=== PATIENT | male | born 1975 | race Caucasian/White ===

== ENCOUNTER 2019-01-15 11:53 | Inpatient (IN) ==
[2019-01-15] MEDS ORDERED: Albuterol 2.5 MG/3 ML NEBULIZER IH ONE (11:58)
[2019-01-15] MEDS ORDERED: methylPREDNISolone 125 MG/2 ML VIAL IVP ONE (11:58)
[2019-01-15] MEDS ORDERED: Ipratropium/Albuterol Neb 3 ML IH ONE (11:58)
[2019-01-15] MEDS ORDERED: Isovue-370 500 ML BOTTLE IVP ONE ×2 (11:58→14:15)
[2019-01-15] MEDS ORDERED: cefTRIAXone 1,000 MG in Water for inj. (sterile) 20 ML 10 ML IVP ONE (11:58)
[2019-01-15] MEDS ORDERED: Azithromycin 250 MG TABLET PO ONE (11:58)
--- NOTE | 2019-01-15 12:07 | Emergency Department Note ---
Disposition Clinical Impression: CAP (community acquired pneumonia) Disposition: Admitted As Inpatient Condition: Fair Instructions: Community-acquired Pneumonia (ED) Referrals: Eamon George MD [Primary Care Provider] - Forms: ED Satisfaction Letter, Work/School Release Time of Disposition: 12:28 ( will admit) SOB HPI - General Chief Complaint: ED General Medical Stated Complaint: Shortness of Breath Time Seen by Provider: 01/15/19 11:55 Source: patient Mode of arrival: ambulatory Limitations: no limitations Nursing Notes Reviewed: Yes Vital Signs Reviewed: Yes - History of Present Illness This 43-year-old male who presents to the emergency department today with complaints of shortness of breath. Patient was initially evaluated at primary care physician's office, and sent here directly to the ER. Patient does appear to be in mild respiratory distress, his O2 saturation on arrival was 83% on room air. Patient does have mottled extremities, he states that he has history of COPD and asthma. Pt Subjective Complaint: shortness of breath Onset (ago): Just [employer] Context: recent illness Severity: moderate Consistency/Duration: intermittent Improves with: oxygen, rest Worsens with: exertion Known history of: COPD, asthma - Related Data Home Medications Medication Instructions Recorded Confirmed Albuterol Sulfate [Proair Hfa] 90 mcg IH Q4-6H PRN 03/06/16 01/15/19 Amantadine [Symmetrel] 100 mg PO BID 03/06/16 Bupropion HCl [Wellbutrin Xl] 300 mg PO DAILY 03/06/16 Cyclobenzaprine [Flexeril] 10 mg PO TID 03/06/16 Duloxetine HCl [Cymbalta] 60 mg PO BID 03/06/16 01/15/19 Gabapentin [Neurontin] 800 mg PO TID 03/06/16 01/15/19 HYDROcodone/Acet 5/325 mg [[place] 1 tab PO Q8HR 03/06/16 01/15/19 5-325 mg] Methadone 5 mg PO TID 03/06/16 01/15/19 Modafinil [Provigil] 200 mg PO DAILY 03/06/16 01/15/19 Alexander-3/Dha/Epa/Fish Oil [Alexander-3 1,200 mg PO DAILY 03/06/16 01/15/19 Fish Oil 1,200 mg Sfgl] RisperiDONE [Risperdal] 1 mg PO TID 03/06/16 01/15/19 SUMAtriptan succinate [Imitrex] 100 mg PO DAILY 03/06/16 01/15/19 Atorvastatin 40 mg PO DAILY 01/15/19 01/15/19 Tadalafil [Cialis] 20 mg PO DAILY 01/15/19 01/15/19 Previous Rx's Medication Instructions Recorded Albuterol Sulfate [Albuterol 1 puff IH QID PRN #1 puff 03/06/16 Inhaler] Allergies Allergy/AdvReac Type Severity Reaction Status Date / Time No Known Allergies Allergy Verified 03/06/16 15:19 Constitutional: Denies: fever, chills, weakness, weight change Eyes: Denies: eye pain, eye discharge, vision change ENT ED: Denies: ear pain, throat pain, dental pain, hearing loss, epistaxis, congestion, dysphagia Cardiovascular: Denies: chest pain, palpitations, dyspnea on exertion, edema, syncope Respiratory: Reports: cough, dyspnea, wheezes. Denies: hemoptysis, stridor Gastrointestinal: Denies: abdominal pain, nausea, vomiting, diarrhea, co nstipation, hematemesis, melena, hematochezia Genitourinary: Denies: urgency, dysuria, frequency, hematuria Musculoskeletal: Denies: back pain, neck pain, arthralgia, myalgia Integumentary: Denies: rash, abrasion, lesions Neurological: Denies: headache, weakness, numbness, paresthesias, confusion, a bnormal gait, vertigo Psychiatric: Denies: anxiety, depression, suicidal thoughts, homicidal thoughts, auditory hallucinations, visual hallucinations Endocrine: Denies: fatigue Hematological/Lymphatic: Denies: easy bleeding, easy bruising Allergic/Immunologic: Denies: facial swelling, urticaria Past Medical History - Past Medical History Medical history: Reports: asthma, COPD Psychiatric history: Reports: no psych history - Social History Smoking Status: Former smoker Smokeless Tobacco Status: No Alcohol use: Reports: none Drug use: Reports: none Physical Exam - General Limitations: no limitations General appearance: alert - Head Head exam: atraumatic, normocephalic, normal inspection - Eye Eye exam: Present: normal appearance, PERRL, EOMI - Expanded Eye Exam Pupils: Left: reactive - ENT ENT exam: normal exam, normal oropharynx, mucous membranes moist - Expanded ENT Exam External ear exam: Present: normal external inspection Mouth exam: Present: normal external inspection Teeth exam: Present: normal inspection Throat exam: Present: normal inspection - Neck Neck exam: Present: normal inspection, full ROM, trachea midline - Chest Chest inspection: Present: normal inspection, symmetric chest wall rise - Respiratory Respiratory exam: Present: wheezes, accessory muscle use, prolonged expiratory phase - Cardiovascular Cardiovascular exam: Present: tachycardia, normal heart sounds - Abdominal Exam Abdominal exam: Present: soft, Non-Tender. Absent: tenderness, distention, guarding, rebound, rigidity - Extremities Exam Extremities exam: Present: normal inspection, full ROM. Absent: tenderness, pedal edema - Expanded Upper Extremity Exam Shoulder exam: Present: normal inspection, full ROM Arm exam: Present: normal inspection, full ROM Elbow exam: Present: normal inspection, full ROM Forearm/Wrist exam: Present: normal inspection, full ROM Hand exam: Present: normal inspection, full ROM Vascular exam: Normal: capillary refill, radial pulse - Expanded Lower Extremity Exam Hip/Pelvis exam: Present: normal inspection, full ROM Upper leg exam: Present: normal inspection, full ROM Knee exam: Present: normal inspection, full ROM Lower leg exam: Present: normal inspection, full ROM Ankle exam: Present: normal inspection, full ROM Foot/toe exam: Present: normal inspection, full ROM Neurovascular/Tendon exam: Absent: motor deficit, sensory deficit, tendon deficit - Back Exam Back exam: Present: normal inspection, full ROM. Absent: tenderness - Neurological Exam Neurological exam: Present: alert, oriented X3 - Expanded Neurological Exam Patient oriented to: Present: person, place, time Coma Scale Eye Opening: Spontaneous Coma Scale Motor Response: Obeys Commands Coma Scale Verbal Response: Oriented Coma Scale Total: 15 - Psychiatric Psychiatric exam: Present: normal affect, normal mood - Skin Skin exam: Present: warm, dry, intact, normal color Course Vital Signs Temperature 97.8 F 01/15/19 11:55 Pulse Rate 83 01/15/19 11:55 Respiratory Rate 18 01/15/19 11:55 Blood Pressure 130/78 01/15/19 11:55 O2 Sat by Pulse Oximetry 91 01/15/19 11:55 Temperature 97.8 F 01/15/19 11:55 Pulse Rate 89 01/15/19 12:30 Respiratory Rate 18 01/15/19 12:30 Blood Pressure 141/93 01/15/19 12:30 O2 Sat by Pulse Oximetry 98 01/15/19 12:30 Oxygen Delivery Oxygen Delivery Room Air Shortness of Breath/Dyspnea - Differential Diagnosis Likely: acute exacerbation of chronic obstructive airways disease, congestive heart failure, pneumonia, asthma with exacerbation - Medical Records Medical records reviewed: Yes I reviewed the patient's medical records. - Lab Data Lab results reviewed: Yes I reviewed the patient's lab results. Result diagrams: 01/15/19 12:06 01/15/19 12:06 Lab Results 01/15/19 01/15/19 01/15/19 Range/Units 12:06 12:06 12:06 WBC 6.4 (4.3-11.1) K/mcL RBC 4.32 (4.19-5.50) M/mcL Hgb 14.0 (12.9-16.9) g/dL Hct 39.2 (37.5-50.1) % MCV 90.7 (83.0-100.0) fL MCH 32.4 (28.0-33.3) pg MCHC 35.7 H (31.6-35.5) g/dL RDW 12.5 (11.5-14.5) % Plt Count 86 L (140-400) K/mcL MPV 9.0 L (9.4-12.4) fL Immature Gran % 3.4 (0-4) % Seg Neutrophils % 88.5 % Lymphocytes % 4.5 % Monocytes % 3.0 % Eosinophils % 0.0 % Basophils % 0.6 % Neutrophils # 5.7 (1.6-8.9) K/mcL Lymphocytes # 0.3 L (0.6-4.6) K/mcL Monocytes # 0.2 (0.0-1.3) K/mcL Eosinophils # 0.0 (0.0-0.6) K/mcL Basophils # 0.0 (0.0-0.2) K/mcL PT 12.5 H (9.4-12.1) Seconds INR 1.1 APTT 39.3 H (26.0-36.0) Seconds D-Dimer 1069 H (0-500) ng/mLFEU Sample Site ABG pH (7.32-7.45) pH Units ABG pCO2 (35-45) mmHg ABG pO2 (85-104) mmHg ABG HCO3 (21-27) mEq/L ABG Total CO2 (20-26) mEq/L ABG O2 Saturation (95-98) % ABG Base Excess (-2 to 3) mEq/L Maged Test O2 Delivery Device Inspired O2 (1-15=lpm [id number]=%) Sodium 132 L (136-145) mEq/L Potassium 4.3 (3.5-5.1) mEq/L Chloride 96 L (98-107) mEq/L Carbon Dioxide 24 (23-29) mEq/L BUN 27 H (6-20) mg/dL Creatinine 1.73 H (0.70-1.30) mg/dL Est GFR ( Amer) 52 L (> 60) Est GFR (Non-Af Amer) 43 L (> 60) BUN/Creatinine Ratio 16 (6-26) Glucose 92 (70-105) mg/dL Calculated Osmolality 279 L (280-300) Lactic Acid (0.5-2.2) mmol/L Calcium 9.1 (8.6-10.3) mg/dL Troponin I < 0.03 (< 0.04) ng/mL B-Natriuretic Peptide (Less than 100) pg/mL 01/15/19 01/15/19 01/15/19 Range/Units 12:06 12:06 12:29 WBC (4.3-11.1) K/mcL RBC (4.19-5.50) M/mcL Hgb (12.9-16.9) g/dL Hct (37.5-50.1) % MCV (83.0-100.0) fL MCH (28.0-33.3) pg MCHC (31.6-35.5) g/dL RDW (11.5-14.5) % Plt Count (140-400) K/mcL MPV (9.4-12.4) fL Immature Gran % (0-4) % Seg Neutrophils % % Lymphocytes % % Monocytes % % Eosinophils % % Basophils % % Neutrophils # (1.6-8.9) K/mcL Lymphocytes # (0.6-4.6) K/mcL Monocytes # (0.0-1.3) K/mcL Eosinophils # (0.0-0.6) K/mcL Basophils # (0.0-0.2) K/mcL PT (9.4-12.1) Seconds INR APTT (26.0-36.0) Seconds D-Dimer (0-500) ng/mLFEU Sample Site R Radial ABG pH 7.43 (7.32-7.45) pH Units ABG pCO2 34 L (35-45) mmHg ABG pO2 56 L (85-104) mmHg ABG HCO3 23 (21-27) mEq/L ABG Total CO2 24 (20-26) mEq/L ABG O2 Saturation 90 L (95-98) % ABG Base Excess -1 (-2 to 3) mEq/L Maged Test Positive O2 Delivery Device Cannula Inspired O2 2.0 (1-15=lpm [id number]=%) Sodium (136-145) mEq/L Potassium (3.5-5.1) mEq/L Chloride (98-107) mEq/L Carbon Dioxide (23-29) mEq/L BUN (6-20) mg/dL Creatinine (0.70-1.30) mg/dL Est GFR ( Amer) (> 60) Est GFR (Non-Af Amer) (> 60) BUN/Creatinine Ratio (6-26) Glucose (70-105) mg/dL Calculated Osmolality (280-300) Lactic Acid 1.3 (0.5-2.2) mmol/L Calcium (8.6-10.3) mg/dL Troponin I (< 0.04) ng/mL B-Natriuretic Peptide 6 (Less than 100) pg/mL - Radiology Data Radiology results reviewed: Yes I reviewed the patient's radiology results. Chest x-ray per radiology reading shows infiltrate in the right middle and bilateral lobes of the lung consistent with pneumonia - EKG Data EKG attestation: Yes I reviewed and interpreted this EKG. EKG results narrative: nsr , rate of 85 EKG shows normal: Reports: sinus rhythm Rate: Reports: normal Rhythm: Reports: NSR [place]/QRS: Reports: normal
[2019-01-15 12:18] LABS: Basophils % 0.6 %; Hematocrit 39.2 % (37.5-50.1); Immature Granulocytes % 3.4 % (0-4); Lymphocytes # 0.3 K/mcL (0.6-4.6); Lymphocytes % 4.5 %; Mean Corpuscular HGB Conc 35.7 g/dL (31.6-35.5); Mean Corpuscular Hemoglobin 32.4 pg (28.0-33.3); Mean Corpuscular Volume 90.7 fL (83.0-100.0); Monocytes # 0.2 K/mcL (0.0-1.3); Neutrophils # 5.7 K/mcL (1.6-8.9); Red Blood Count 4.32 M/mcL (4.19-5.50); Red Cell Distribution Width 12.5 % (11.5-14.5); Segmented Neutrophils % 88.5 %
[2019-01-15 12:20] LABS: Platelet Count 86 K/mcL (140-400)
[2019-01-15 12:31] LABS: INR 1.1; Prothrombin Time 12.5 Seconds (9.4-12.1)
[2019-01-15 12:32] LABS: ABG Base Excess -1 mEq/L (-2 to 3); ABG HCO3 23 mEq/L (21-27); ABG Oxygen Saturation 90 % (95-98); ABG PCO2 34 mmHg (35-45); ABG PH 7.43 pH Units (7.32-7.45); ABG PO2 56 mmHg (85-104); ABG TCO2 24 mEq/L (20-26)
[2019-01-15 12:33] LABS: Activated Partial Thrombo Time 39.3 Seconds (26.0-36.0)
[2019-01-15 12:34] LABS: BUN/Creatinine Ratio 16 (6-26); Blood Urea Nitrogen 27 mg/dL (6-20); Calcium 9.1 mg/dL (8.6-10.3); Carbon Dioxide 24 mEq/L (23-29); Chloride 96 mEq/L (98-107); Glucose 92 mg/dL (70-105); Osmolality,Calculated 279 (280-300); Potassium 4.3 mEq/L (3.5-5.1); Sodium 132 mEq/L (136-145); eGFR For Non-African Americans 43 (> 60)
[2019-01-15 12:38] LABS: Troponin I < 0.03 ng/mL (< 0.04)
[2019-01-15] MEDS ORDERED: 0.9 % Sodium Chloride 1,000 ML IVC ONE (12:39)
[2019-01-15] MEDS ORDERED: Albuterol 2.5 MG/3 ML NEBULIZER IH PRN (13:04)
--- NOTE | 2019-01-15 14:40 | Internal Med History&Physical ---
Date of Encounter: 01/15/19 Time of Encounter: 14:10 Assessment and Plan (1) CAP (community acquired pneumonia) Current visit: Yes Status: Acute He was started on Rocephin and Zithromax with Solu-Medrol in emergency room. Lactobacillus will be added. Qualifiers: Laterality: unspecified laterality Qualified Code(s): J18.9 - Pneumonia, unspecified organism (2) COPD (chronic obstructive pulmonary disease) Current visit: Yes Status: Chronic Albuterol nebulizers have been ordered. Qualifiers: COPD type: unspecified COPD Qualified Code(s): J44.9 - Chronic obstructive pulmonary disease, unspecified (3) Acute renal failure Current visit: Yes Status: Acute IV fluids will be given and labs rechecked in a.m. Qualifiers: Acute renal failure type: unspecified Qualified Code(s): N17.9 - Acute kidney failure, unspecified Internal Medicine - H&P: HPI Chief complaint: Cough and dyspnea Admitted From: Emergency Dept Plans for Post Hospital Care: Home History of present illness: Mr. Alvarado is a 43 year old male who came to emergency room complaining of dyspnea, cough with little productivity, and fevers and chills onset January 11. He denies vomiting or diarrhea. He reports diffuse myalgias and arthralgias. He was evaluated emergency room and was found to have bilateral pneumonia. He was admitted to [facility] floor for ongoing care needs. Respiratory history significant for having smoked from age [age] up to 2 packs per day. Pulmonary function testing 07/18/2017 showed FVC 71% predicted, FEV1 62% predicted, FEV1/FVC 69%, and MVV 35% predicted. There was insignificant improvement in FEV1 postbronchodilator. He was diagnosed with moderate obstructive airway disease. He has a diagnosis of ANAYELI and uses CPAP at bedtime. Past Med Surg Social Fam HX - Past Medical History Medical history: asthma, COPD Additional medical history: TBI Psychiatric history: no psych history - Past Surgical History Additional surgical history: knee x7 - Social History Smoking Status: Former smoker Smokeless Tobacco Status: No Alcohol use: none Drug use: none Internal Medicine - H&P: Meds Albuterol Sulfate [Albuterol Inhaler] 1 puff IH QID PRN #1 puff 03/06/16 [Rx] Albuterol Sulfate [Proair Hfa] 90 mcg IH Q4-6H PRN 03/06/16 [History] Amantadine [Symmetrel] 100 mg PO BID 03/06/16 [History] Bupropion HCl [Wellbutrin Xl] 300 mg PO DAILY 03/06/16 [History] Cyclobenzaprine [Flexeril] 10 mg PO TID 03/06/16 [History] Duloxetine HCl [Cymbalta] 60 mg PO BID 03/06/16 [History] Gabapentin [Neurontin] 800 mg PO TID 03/06/16 [History] HYDROcodone/Acet 5/325 mg [[place] 5-325 mg] 1 tab PO Q8HR 03/06/16 [History] Methadone 5 mg PO TID 03/06/16 [History] Modafinil [Provigil] 200 mg PO DAILY 03/06/16 [History] [place]-3/Dha/Epa/Fish Oil [[place]-3 Fish Oil 1,200 mg Sfgl] 1,200 mg PO DAILY 03/06/16 [History] RisperiDONE [Risperdal] 1 mg PO TID 03/06/16 [History] SUMAtriptan succinate [Imitrex] 100 mg PO DAILY 03/06/16 [History] Atorvastatin 40 mg PO DAILY 01/15/19 [History] Tadalafil [Cialis] 20 mg PO DAILY 01/15/19 [History] Allergy/AdvReac Type Severity Reaction Status Date / Time No Known Allergies Allergy Verified 03/06/16 15:19 All Systems PM: A 10-system review of systems was performed and is negative for pertinent findings except as documented above in the HPI. 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 He has not had seizures in the past year. He denies large distribution strokes. Endocrine: He has hyperlipidemia but denies diabetes or thyroid disease Hematology/oncology: He denies blood disorders cancers or anemia Psychiatric: He has anxiety and depression. He denies other mental health diagnoses. [place] skeletal: He has had left knee surgery and right shoulder surgery. He has occasional headaches and back pain. He denies gout or other bone joint or muscle disorders. - Constitutional Vitals: Temp Pulse Resp BP Pulse Ox 97.9 F 85 18 114/67 93 01/15/19 14:24 01/15/19 14:24 01/15/19 14:24 01/15/19 14:24 01/15/19 14:24 Exam: Gen.: He is a well-developed well-nourished male lying quietly in bed who appears in no acute distress HEENT: Head is atraumatic and normocephalic. Eyes: EOMI. There is no scleral icterus. Mouth: Mucosa is moist. Neck: Supple and nontender. There is no thyromegaly or adenopathy noted. Heart: Regular without murmurs gallops or ectopics. Rate is approximately 80/m. Lungs: No wheezes crackles or egophony are heard Abdomen: Soft and nontender. Abdomen is slightly distended. No masses or guarding are noted. Extremities: There is no cyanosis edema or clubbing noted. Dorsalis pedis and posterior tibial pulses are trace palpable bilaterally. Neurologic: Mental status: He is talkative and a good historian. Cranial nerves: Smile is symmetric. Forehead wrinkles bilaterally. Tongue protrudes midline. EOMI. Motor: There is no pronator drift. Cerebellar: Finger to nose is intact bilaterally. Skin: Warm and dry. He has numerous tattoos. Internal Med - H&P Results - Labs CBC & Chem 7: 01/15/19 12:06 01/15/19 12:06 Labs: Short CBC 01/15/19 Range/Units 12:06 WBC 6.4 (4.3-11.1) K/mcL Hgb 14.0 (12.9-16.9) g/dL Hct 39.2 (37.5-50.1) % Plt Count 86 L (140-400) K/mcL Neutrophils # 5.7 (1.6-8.9) K/mcL BMP 01/15/19 12:06 Sodium 132 L Potassium 4.3 Chloride 96 L Carbon Dioxide 24 BUN 27 H Creatinine 1.73 H Glucose 92 Calcium 9.1 Cardiac Enzymes 01/15/19 Range/Units 12:06 Troponin I < 0.03 (< 0.04) ng/mL - ABG Interpretation ABG results: 01/15/19 12:29 ABG pH 7.43 ABG pCO2 34 L ABG pO2 56 L ABG HCO3 23 ABG Total CO2 24 ABG O2 Saturation 90 L ABG Base Excess -1 - Impressions ITS Impressions Chest X-Ray 01/15/19 11:58 IMPRESSION: Airspace opacities in the bilateral mid to lower lungs are more severe on the right and likely represent pneumonia. D/ / Gasper Conde MD / Gasper Conde MD Interpreting Provider: Gasper Conde MD
[2019-01-15] MEDS: Albuterol 2.5 MG/3 ML NEBULIZER IH PRN ×2 (16:50→22:43)
[2019-01-15] MEDS: *HR* HYDROcodone/Acet 5/325 mg TABLET PO PRN (17:39)
[2019-01-15] MEDS: risperiDONE 1 MG TABLET PO SCH ×2 (17:40→20:12)
[2019-01-15] MEDS: MethylPREDNISolone 40 MG/ML VIAL IVP SCH (17:40)
[2019-01-15] MEDS: 0.45 % Sodium Chloride w/KCl 20 MEQ/1,000 ML MLS IVC SCH (17:41)
--- NOTE | 2019-01-15 17:42 | Electrocardiograph Report ---
[place] [id number] Test Date: 2019-01-15 Pat Name: Sonido Alvarado Department: EDP-14 Room: [facility] Gender: M Advertising Specialist: : [id number] Requested By: Rosie Jimenez Order Number: [id number] Reading MD: Domonique Alejandre Measurements Intervals [place] Rate: 85 P: 54 CO: 147 QRS: 39 QRSD: 94 T: 58 QT: 352 QTc: 419 Interpretive Statements Sinus rhythm Probable left atrial enlargement Electronically Signed On 01-15-2019 17:40:27 EST by Domonique Alejandre
[2019-01-15] MEDS: Gabapentin 400 MG CAPSULE PO SCH ×2 (19:14→20:15)
[2019-01-15] MEDS: Lactobacillus 1 EACH CAP.SPRINK PO SCH (20:15)
[2019-01-15] MEDS: *HR* Methadone 10 MG TABLET PO SCH (20:15)
[2019-01-16] MEDS: MethylPREDNISolone 40 MG/ML VIAL IVP SCH ×4 (00:14→23:26)
[2019-01-16] MEDS: SUMAtriptan succinate 25 MG TABLET PO PRN (00:14)
[2019-01-16] MEDS: *HR* HYDROcodone/Acet 5/325 mg TABLET PO PRN (01:42)
[2019-01-16] MEDS: Albuterol 2.5 MG/3 ML NEBULIZER IH PRN ×6 (02:51→22:31)
[2019-01-16] MEDS: 0.45 % Sodium Chloride w/KCl 20 MEQ/1,000 ML MLS IVC SCH ×2 (03:50→10:08)
[2019-01-16 05:20] LABS: Basophils % 0.1 %; Eosinophils % 0.1 %; Hematocrit 34.8 % (37.5-50.1); Hemoglobin 12.4 g/dL (12.9-16.9); Immature Granulocytes % 1.6 % (0-4); Lymphocytes # 0.2 K/mcL (0.6-4.6); Lymphocytes % 3.6 %; Mean Corpuscular HGB Conc 35.6 g/dL (31.6-35.5); Mean Corpuscular Hemoglobin 32.5 pg (28.0-33.3); Mean Corpuscular Volume 91.1 fL (83.0-100.0); Mean Platelet Volume 9.3 fL (9.4-12.4); Monocytes # 0.2 K/mcL (0.0-1.3); Monocytes % 2.4 %; Neutrophils # 6.2 K/mcL (1.6-8.9); Red Blood Count 3.82 M/mcL (4.19-5.50); Red Cell Distribution Width 12.3 % (11.5-14.5); Segmented Neutrophils % 92.2 %
[2019-01-16 06:05] LABS: BUN/Creatinine Ratio 21 (6-26); Blood Urea Nitrogen 20 mg/dL (6-20); Calcium 8.7 mg/dL (8.6-10.3); Carbon Dioxide 22 mEq/L (23-29); Chloride 100 mEq/L (98-107); Glucose 135 mg/dL (70-105); Osmolality,Calculated 277 (280-300); Potassium 4.4 mEq/L (3.5-5.1); Sodium 131 mEq/L (136-145); eGFR For Non-African Americans > 60 (> 60)
[2019-01-16 06:16] LABS: Platelet Count 83 K/mcL (140-400)
--- NOTE | 2019-01-16 08:57 | Internal Med Progress Note ---
Date of Encounter: 01/16/19 Time of Encounter: 08:50 - Assessment and plan (1) CAP (community acquired pneumonia) Current Visit: Yes Status: Acute Assessment and plan: January 16. Continue Rocephin and Zithromax with lactobacillus and steroids. Qualifiers: Laterality: unspecified laterality Qualified Code(s): J18.9 - Pneumonia, unspecified organism (2) COPD (chronic obstructive pulmonary disease) Current Visit: Yes Status: Chronic Assessment and plan: January 16. Continue nebulizers and antibiotics as above. Qualifiers: COPD type: unspecified COPD Qualified Code(s): J44.9 - Chronic obstructive pulmonary disease, unspecified (3) Acute renal failure Current Visit: Yes Status: Acute Assessment and plan: January 16. BUN and creatinine have normalized to 20 and 0.97 respectively with estimated GFR greater than 60. Continue present Rx Qualifiers: Acute renal failure type: unspecified Qualified Code(s): N17.9 - Acute kidney failure, unspecified - Subjective Interval history: January 16. He has no new complaints. He feels improved but not back to his baseline. - Constitutional Vitals: Temp Pulse Resp BP Pulse Ox 98.4 F 83 16 121/76 92 01/16/19 07:00 01/16/19 07:00 01/16/19 07:00 01/16/19 07:00 01/16/19 07:00 Exam: He is resting comfortably in bed and appears in no significant distress. Oxygen saturation is 93% on bedside monitor. I reviewed his medications and lab results. Internal Medicine: Result - Labs CBC & Chem 7: 01/16/19 04:58 01/16/19 04:58 Labs: Short CBC 01/15/19 01/16/19 Range/Units 12:06 04:58 WBC 6.4 6.7 (4.3-11.1) K/mcL Hgb 14.0 12.4 L D (12.9-16.9) g/dL Hct 39.2 34.8 L (37.5-50.1) % Plt Count 86 L 83 L (140-400) K/mcL Neutrophils # 5.7 6.2 (1.6-8.9) K/mcL BMP 01/15/19 01/16/19 12:06 04:58 Sodium 132 L 131 L Potassium 4.3 4.4 Chloride 96 L 100 Carbon Dioxide 24 22 L BUN 27 H 20 Creatinine 1.73 H 0.97 Glucose 92 135 H Calcium 9.1 8.7 Cardiac Enzymes 01/15/19 Range/Units 12:06 Troponin I < 0.03 (< 0.04) ng/mL - ABG Interpretation ABG results: ABG ABG pH 7.43 pH Units (7.32-7.45) 01/15/19 12:29 ABG pCO2 34 mmHg (35-45) L 01/15/19 12:29 ABG pO2 56 mmHg (85-104) L 01/15/19 12:29 ABG O2 Saturation 90 % (95-98) L 01/15/19 12:29 PT/INR, D-dimer PT 12.5 Seconds (9.4-12.1) H 01/15/19 12:06 D-Dimer 1069 ng/mLFEU (0-500) H 01/15/19 12:06 - Impressions Impressions Chest X-Ray 01/15/19 11:58 IMPRESSION: Airspace opacities in the bilateral mid to lower lungs are more severe on the right and likely represent pneumonia. D/ / Gasper Conde MD / Gasper Conde MD Interpreting Provider: Gasper Conde MD Consult Discharge Plan - Plan Referrals: Eamon George MD [Primary Care Provider] - 1 week
[2019-01-16] MEDS ORDERED: Tadalafil [Cialis] 20 MG PO SCH (09:00)
[2019-01-16] MEDS ORDERED: OMEGA FISH OIL PO SCH (09:00)
[2019-01-16] MEDS: cefTRIAXone 1,000 MG in Water for inj. (sterile) 20 ML 10 ML IVP SCH (09:42)
[2019-01-16] MEDS: Lactobacillus 1 EACH CAP.SPRINK PO SCH ×2 (09:44→20:32)
[2019-01-16] MEDS: *HR* Methadone 10 MG TABLET PO SCH ×3 (09:44→20:32)
[2019-01-16] MEDS: risperiDONE 1 MG TABLET PO SCH ×3 (09:45→20:31)
[2019-01-16] MEDS: Gabapentin 400 MG CAPSULE PO SCH ×3 (09:45→20:31)
[2019-01-16] MEDS: BuPROPion XL (24 HR) 150 MG TABLET PO SCH (09:45)
[2019-01-16] MEDS: Azithromycin 500 MG in D5% in Water 250 ML IVPB SCH (10:02)
[2019-01-17] MEDS: Albuterol 2.5 MG/3 ML NEBULIZER IH PRN ×5 (02:17→21:24)
[2019-01-17 06:02] LABS: Hematocrit 36.5 % (37.5-50.1); Hemoglobin 12.7 g/dL (12.9-16.9); Mean Corpuscular HGB Conc 34.8 g/dL (31.6-35.5); Mean Corpuscular Hemoglobin 32.3 pg (28.0-33.3); Mean Corpuscular Volume 92.9 fL (83.0-100.0); Mean Platelet Volume 9.4 fL (9.4-12.4); Platelet Count 105 K/mcL (140-400); Red Blood Count 3.93 M/mcL (4.19-5.50); Red Cell Distribution Width 12.4 % (11.5-14.5)
[2019-01-17 06:27] LABS: BUN/Creatinine Ratio 27 (6-26); Blood Urea Nitrogen 26 mg/dL (6-20); Calcium 8.8 mg/dL (8.6-10.3); Carbon Dioxide 24 mEq/L (23-29); Chloride 101 mEq/L (98-107); Glucose 130 mg/dL (70-105); Osmolality,Calculated 285 (280-300); Potassium 4.9 mEq/L (3.5-5.1); Sodium 134 mEq/L (136-145); eGFR For Non-African Americans > 60 (> 60)
[2019-01-17 07:32] LABS: Lymphocytes # 0.4 K/mcL (0.6-4.6); Monocytes # 0.2 K/mcL (0.0-1.3); Neutrophils # 8.8 K/mcL (1.6-8.9)
[2019-01-17 07:34] LABS: Platelet Estimate Decreased (Normal); Toxic Granulation Present (Not Present); Toxic Vacuolation Present (Not Present)
[2019-01-17] MEDS: Lactobacillus 1 EACH CAP.SPRINK PO SCH ×2 (09:39→20:50)
[2019-01-17] MEDS: *HR* Methadone 10 MG TABLET PO SCH ×3 (09:40→20:51)
[2019-01-17] MEDS: cefTRIAXone 1,000 MG in Water for inj. (sterile) 20 ML 10 ML IVP SCH (09:41)
[2019-01-17] MEDS: BuPROPion XL (24 HR) 150 MG TABLET PO SCH (09:41)
[2019-01-17] MEDS: MethylPREDNISolone 40 MG/ML VIAL IVP SCH ×2 (09:41→16:13)
[2019-01-17] MEDS: risperiDONE 1 MG TABLET PO SCH ×3 (09:41→20:52)
[2019-01-17] MEDS: Gabapentin 400 MG CAPSULE PO SCH ×3 (09:41→20:52)
[2019-01-17] MEDS: Azithromycin 500 MG in D5% in Water 250 ML IVPB SCH (09:42)
[2019-01-17] MEDS ORDERED: MOM Conc 10 ML UD.LIQ PO ONE (10:02)
[2019-01-17] MEDS: 0.45 % Sodium Chloride w/KCl 20 MEQ/1,000 ML MLS IVC SCH (10:13)
[2019-01-17 10:43] LABS: % Iron Saturation 29 % (20-55); Iron 80 mcg/dL (65-175); Transferrin 194 mg/dL (203-362)
[2019-01-17 11:02] LABS: Ferritin 1002 ng/mL (20-250)
[2019-01-17 11:08] LABS: Folate 5.8 ng/mL (3.0-16.0)
--- NOTE | 2019-01-17 11:41 | Internal Med Progress Note ---
Date of Encounter: 01/17/19 Time of Encounter: 11:32 - Assessment and plan (1) CAP (community acquired pneumonia) Current Visit: Yes Status: Acute Assessment and plan: January 16. Continue Rocephin and Zithromax with lactobacillus and steroids. Qualifiers: Laterality: unspecified laterality Qualified Code(s): J18.9 - Pneumonia, unspecified organism (2) COPD (chronic obstructive pulmonary disease) Current Visit: Yes Status: Chronic Assessment and plan: January 16. Continue nebulizers and antibiotics as above. Qualifiers: COPD type: unspecified COPD Qualified Code(s): J44.9 - Chronic obstructive pulmonary disease, unspecified (3) Acute renal failure Current Visit: Yes Status: Acute Assessment and plan: January 16. BUN and creatinine have normalized to 20 and 0.97 respectively with estimated GFR greater than 60. Continue present Rx January 17. BUN and creatinine stable at 26 and 0.97 respectively. Qualifiers: Acute renal failure type: unspecified Qualified Code(s): N17.9 - Acute kidney failure, unspecified (4) Anemia Current Visit: Yes Status: Acute Assessment and plan: January 17. Anemia testing today showed iron 80, transferrin saturation 29%, transferrin 194, ferritin 1002, B12 523, and folate 5.8. Hemoglobin improved to 12.7. Continue to monitor. Qualifiers: Anemia type: unspecified type Qualified Code(s): D64.9 - Anemia, unspecified - Subjective Interval history: January 16. He has no new complaints. He feels improved but not back to his baseline. January 17. He feels slightly improved. He is still dyspneic. Cough is minimally productive. - Constitutional Vitals: Temp Pulse Resp BP Pulse Ox 98.3 F 81 28 129/78 91 01/17/19 11:00 01/17/19 11:00 01/17/19 11:14 01/17/19 11:00 01/17/19 11:14 Exam: He is sitting in bed wearing oxygen by mask. Saturations are 89-90% on bedside monitor. He does not appear tachypeneic. I reviewed his medications and lab results. Internal Medicine: Result - Labs CBC & Chem 7: 01/17/19 04:53 01/17/19 04:53 Labs: Short CBC 01/17/19 Range/Units 04:53 WBC 9.4 (4.3-11.1) K/mcL Hgb 12.7 L (12.9-16.9) g/dL Hct 36.5 L (37.5-50.1) % Plt Count 105 L (140-400) K/mcL Neutrophils # 8.8 (1.6-8.9) K/mcL BMP 01/17/19 04:53 Sodium 134 L Potassium 4.9 Chloride 101 Carbon Dioxide 24 BUN 26 H Creatinine 0.97 Glucose 130 H Calcium 8.8 - ABG Interpretation ABG results: ABG ABG pH 7.43 pH Units (7.32-7.45) 01/15/19 12:29 ABG pCO2 34 mmHg (35-45) L 01/15/19 12:29 ABG pO2 56 mmHg (85-104) L 01/15/19 12:29 ABG O2 Saturation 90 % (95-98) L 01/15/19 12:29 PT/INR, D-dimer PT 12.5 Seconds (9.4-12.1) H 01/15/19 12:06 D-Dimer 1069 ng/mLFEU (0-500) H 01/15/19 12:06 Consult Discharge Plan - Plan Referrals: Eamon George MD [Primary Care Provider] - 1 week
[2019-01-17] MEDS: *HR* HYDROcodone/Acet 5/325 mg TABLET PO PRN (20:52)
[2019-01-17] MEDS: Budesonide/Formoterol 160/4.5 1 PUFF INH IH SCH (21:25)
[2019-01-18] MEDS: MethylPREDNISolone 40 MG/ML VIAL IVP SCH ×3 (00:05→16:34)
[2019-01-18] MEDS: Albuterol 2.5 MG/3 ML NEBULIZER IH PRN ×4 (04:40→19:55)
[2019-01-18 05:30] LABS: Hematocrit 35.9 % (37.5-50.1); Hemoglobin 12.6 g/dL (12.9-16.9); Mean Corpuscular HGB Conc 35.1 g/dL (31.6-35.5); Mean Corpuscular Hemoglobin 32.1 pg (28.0-33.3); Mean Corpuscular Volume 91.6 fL (83.0-100.0); Mean Platelet Volume 8.7 fL (9.4-12.4); Platelet Count 112 K/mcL (140-400); Red Blood Count 3.92 M/mcL (4.19-5.50); Red Cell Distribution Width 12.5 % (11.5-14.5)
[2019-01-18 05:47] LABS: Lymphocytes # 0.6 K/mcL (0.6-4.6); Monocytes # 0.2 K/mcL (0.0-1.3); Neutrophils # 8.5 K/mcL (1.6-8.9)
[2019-01-18 05:50] LABS: BUN/Creatinine Ratio 29 (6-26); Blood Urea Nitrogen 25 mg/dL (6-20); Carbon Dioxide 25 mEq/L (23-29); Chloride 100 mEq/L (98-107); Glucose 128 mg/dL (70-105); Osmolality,Calculated 284 (280-300); Potassium 4.7 mEq/L (3.5-5.1); Sodium 134 mEq/L (136-145); eGFR For Non-African Americans > 60 (> 60)
[2019-01-18 05:51] LABS: Anisocytosis 1+ (Not Present); Platelet Estimate Decreased (Normal); Toxic Granulation Present (Not Present); Toxic Vacuolation Present (Not Present)
[2019-01-18] MEDS: Azithromycin 500 MG in D5% in Water 250 ML IVPB SCH (09:59)
[2019-01-18] MEDS: cefTRIAXone 1,000 MG in Water for inj. (sterile) 20 ML 10 ML IVP SCH (10:00)
[2019-01-18] MEDS: *HR* Methadone 10 MG TABLET PO SCH ×2 (10:01→16:34)
[2019-01-18] MEDS: SUMAtriptan succinate 25 MG TABLET PO PRN (10:01)
[2019-01-18] MEDS: Gabapentin 400 MG CAPSULE PO SCH ×2 (10:01→16:35)
[2019-01-18] MEDS: Lactobacillus 1 EACH CAP.SPRINK PO SCH (10:03)
[2019-01-18] MEDS: BuPROPion XL (24 HR) 150 MG TABLET PO SCH (10:03)
[2019-01-18] MEDS: risperiDONE 1 MG TABLET PO SCH ×2 (10:03→16:35)
[2019-01-18] MEDS: Budesonide/Formoterol 160/4.5 1 PUFF INH IH SCH (10:47)
[2019-01-18 11:03] LABS: Mycoplasma pneumoniae IgG 0.07 U/L (<=0.09)
--- NOTE | 2019-01-18 12:36 | Internal Med Progress Note ---
Date of Encounter: 01/18/19 Time of Encounter: 12:25 - Assessment and plan (1) CAP (community acquired pneumonia) Current Visit: Yes Status: Acute Assessment and plan: January 16. Continue Rocephin and Zithromax with lactobacillus and steroids. January 18. Chest CT and viral respiratory panel will be done to further evaluate. Qualifiers: Laterality: unspecified laterality Qualified Code(s): J18.9 - Pneumonia, unspecified organism (2) COPD (chronic obstructive pulmonary disease) Current Visit: Yes Status: Chronic Assessment and plan: January 16. Continue nebulizers and antibiotics as above. Qualifiers: COPD type: unspecified COPD Qualified Code(s): J44.9 - Chronic obstructive pulmonary disease, unspecified (3) Acute renal failure Current Visit: Yes Status: Acute Assessment and plan: January 16. BUN and creatinine have normalized to 20 and 0.97 respectively with estimated GFR greater than 60. Continue present Rx January 17. BUN and creatinine stable at 26 and 0.97 respectively. January 18. Creatinine further improved to 0.85. Continue present management. Qualifiers: Acute renal failure type: unspecified Qualified Code(s): N17.9 - Acute kidney failure, unspecified (4) Anemia Current Visit: Yes Status: Acute Assessment and plan: January 17. Anemia testing today showed iron 80, transferrin saturation 29%, transferrin 194, ferritin 1002, B12 523, and folate 5.8. Hemoglobin improved to 12.7. Continue to monitor. Qualifiers: Anemia type: unspecified type Qualified Code(s): D64.9 - Anemia, unspecified - Subjective Interval history: January 16. He has no new complaints. He feels improved but not back to his baseline. January 17. He feels slightly improved. He is still dyspneic. Cough is minimally productive. January 18. He feels minimally improved. He is still dyspneic. - Constitutional Vitals: Temp Pulse Resp BP Pulse Ox 98.0 F 76 16 128/74 93 01/18/19 07:00 01/18/19 07:00 01/18/19 07:00 01/18/19 07:00 01/18/19 08:45 Exam: He is resting comfortably in bed wearing oxygen by Oxy mask. His affect is cheerful. I reviewed his medications, vitals, chest x-ray report and lab results. Internal Medicine: Result - Labs CBC & Chem 7: 01/18/19 05:15 01/18/19 05:15 Labs: Short CBC 01/18/19 Range/Units 05:15 WBC 9.4 (4.3-11.1) K/mcL Hgb 12.6 L (12.9-16.9) g/dL Hct 35.9 L (37.5-50.1) % Plt Count 112 L (140-400) K/mcL Neutrophils # 8.5 (1.6-8.9) K/mcL BMP 01/18/19 05:15 Sodium 134 L Potassium 4.7 Chloride 100 Carbon Dioxide 25 BUN 25 H Creatinine 0.85 Glucose 128 H Calcium 9.0 - ABG Interpretation ABG results: ABG ABG pH 7.43 pH Units (7.32-7.45) 01/15/19 12:29 ABG pCO2 34 mmHg (35-45) L 01/15/19 12:29 ABG pO2 56 mmHg (85-104) L 01/15/19 12:29 ABG O2 Saturation 90 % (95-98) L 01/15/19 12:29 PT/INR, D-dimer PT 12.5 Seconds (9.4-12.1) H 01/15/19 12:06 D-Dimer 1069 ng/mLFEU (0-500) H 01/15/19 12:06 - Impressions Impressions Chest X-Ray 01/18/19 07:00 IMPRESSION: Widespread airspace disease appears increased from 01/15/2019. Interval enlargement of the cardiopericardial silhouette. D/ / Emmett Lamar MD / Emmett Lamar MD Interpreting Provider: Emmett Lamar MD Consult Discharge Plan - Plan Referrals: Eamon George MD [Primary Care Provider] - 1 week
--- NOTE | 2019-01-18 16:38 | Discharge Summary ---
Orders not resulted at time of discharge: Pending orders 01/15/19 12:19 Culture,Blood [BC] Stat 01/18/19 13:55 Resp.Virus Panel,Body Fl Routine Date of Encounter: 01/18/19 Time of Encounter: 16:20 - Discharge Diagnosis (1) CAP (community acquired pneumonia) Priority: Primary Status: Acute Qualifiers: Laterality: unspecified laterality Qualified Code(s): J18.9 - Pneumonia, unspecified organism (2) COPD (chronic obstructive pulmonary disease) Priority: Secondary Status: Chronic Qualifiers: COPD type: unspecified COPD Qualified Code(s): J44.9 - Chronic obstructive pulmonary disease, unspecified (3) Acute renal failure Priority: Secondary Status: Resolved Qualifiers: Acute renal failure type: unspecified Qualified Code(s): N17.9 - Acute kidney failure, unspecified (4) Anemia Priority: Secondary Status: Acute Qualifiers: Anemia type: unspecified type Qualified Code(s): D64.9 - Anemia, unspecified Hospital course: Mr. Alvarado is a 43 year old male who came to emergency room complaining of dyspnea, cough with little productivity, and fevers and chills onset January 11. He denies vomiting or diarrhea. He reports diffuse myalgias and art hralgias. He was evaluated emergency room and was found to have bilateral pneumonia. He was admitted to [facility] floor for ongoing care needs. Initial orders were written by the emergency room physician. I saw him on January 15 and performed a history and physical. He was started on Rocephin and Zithromax with Solu-Medrol and lactobacillus. He remained afebrile during his hospital stay. WBC remained normal but there was significant left shift with 76% segs, 14% bands, and 2% promyelocytes on January 18. He required increasing oxygen flow up to 12 L/m by oxygen mask to maintain satisfactory oxygenation. He felt dyspneic and unimproved on January 18. Chest CT was done to further evaluate and showed extensive nonspecific severe bilateral pulmonary disease. I spoke with the patient about the findings and recommended he be transferred to be evaluated by pulmonology and or infectious disease. He agreed to go [facility]. - Time Spent with Patient Total time spent providing and/or coordinating discharge services: - Discharge Medications Prescriptions: No Action Albuterol Sulfate [Albuterol Inhaler] 1 puff IH QID PRN #1 puff PRN Reason: Cough SUMAtriptan succinate [Imitrex] 100 mg PO DAILY RisperiDONE [Risperdal] 1 mg PO TID [place]-3/Dha/Epa/Fish Oil [[place]-3 Fish Oil 1,200 mg Sfgl] 1,200 mg PO DAILY Methadone 5 mg PO TID Gabapentin [Neurontin] 800 mg PO TID Duloxetine HCl [Cymbalta] 60 mg PO BID Cyclobenzaprine [Flexeril] 10 mg PO TID Bupropion HCl [Wellbutrin Xl] 300 mg PO DAILY Amantadine [Symmetrel] 100 mg PO BID Albuterol Sulfate [Proair Hfa] 90 mcg IH Q4-6H PRN PRN Reason: Shortness Of Breath HYDROcodone/Acet 5/325 mg [[place] 5-325 mg] 1 tab PO Q8HR Atorvastatin 40 mg PO DAILY Tadalafil [Cialis] 20 mg PO DAILY Home Medications: Albuterol Sulfate [Albuterol Inhaler] 1 puff IH QID PRN #1 puff 03/06/16 [Rx] Albuterol Sulfate [Proair Hfa] 90 mcg IH Q4-6H PRN 03/06/16 [History] Amantadine [Symmetrel] 100 mg PO BID 03/06/16 [History] Bupropion HCl [Wellbutrin Xl] 300 mg PO DAILY 03/06/16 [History] Cyclobenzaprine [Flexeril] 10 mg PO TID 03/06/16 [History] Duloxetine HCl [Cymbalta] 60 mg PO BID 03/06/16 [History] Gabapentin [Neurontin] 800 mg PO TID 03/06/16 [History] HYDROcodone/Acet 5/325 mg [[place] 5-325 mg] 1 tab PO Q8HR 03/06/16 [History] Methadone 5 mg PO TID 03/06/16 [History] [place]-3/Dha/Epa/Fish Oil [[place]-3 Fish Oil 1,200 mg Sfgl] 1,200 mg PO DAILY 03/06/16 [History] RisperiDONE [Risperdal] 1 mg PO TID 03/06/16 [History] SUMAtriptan succinate [Imitrex] 100 mg PO DAILY 03/06/16 [History] Atorvastatin 40 mg PO DAILY 01/15/19 [History] Tadalafil [Cialis] 20 mg PO DAILY 01/15/19 [History] Allergies/Adverse Reactions: Allergy/AdvReac Type Severity Reaction Status Date / Time No Known Allergies Allergy Verified 03/06/16 15:19 Date of admission: 01/15/19 13:42 Primary care physician: Eamon George MD - Constitutional Vitals: Temp Pulse Resp BP Pulse Ox 98.0 F 76 24 128/74 93 01/18/19 07:00 01/18/19 07:00 01/18/19 10:47 01/18/19 07:00 01/18/19 10:47 - Patient Status Disposition: Transfer Other Condition: Fair - Discharge Instructions
[2019-01-18 19:30] VITALS: BP 129/76
== END 2019-01-18 20:23 | disposition other institution (70) | DRG 194 ==
LOC: EMEROOPIK 11:53 → INPPIK 13:42
PROVIDERS: ADMIT Internal Medicine; ATTEND Internal Medicine

== ENCOUNTER 2020-02-24 10:13 | Inpatient (IN) ==
[2020-02-24] MEDS ORDERED: hydrOXYzine pamoate 25 MG CAPSULE PO ONE (10:25)
[2020-02-24 10:50] LABS: Basophils # 0.1 K/mcL (0.0-0.2); Basophils % 0.8 %; Eosinophils # 0.4 K/mcL (0.0-0.6); Eosinophils % 4.9 %; Hematocrit 33.9 % (37.5-50.1); Hemoglobin 12.5 g/dL (12.9-16.9); Immature Granulocytes % 2.9 % (0-4); Lymphocytes # 1.3 K/mcL (0.6-4.6); Mean Corpuscular HGB Conc 36.9 g/dL (31.6-35.5); Mean Corpuscular Hemoglobin 31.6 pg (28.0-33.3); Mean Corpuscular Volume 85.8 fL (83.0-100.0); Mean Platelet Volume 8.5 fL (9.4-12.4); Monocytes # 1.1 K/mcL (0.0-1.3); Monocytes % 12.2 %; Neutrophils # 5.6 K/mcL (1.6-8.9); Platelet Count 160 K/mcL (140-400); Red Blood Count 3.95 M/mcL (4.19-5.50); Red Cell Distribution Width 11.6 % (11.5-14.5); Segmented Neutrophils % 64.2 %; White Blood Count 8.8 K/mcL (4.3-11.1)
[2020-02-24 10:52] LABS: INR 1.2; Prothrombin Time 13.2 Seconds (9.4-12.1)
[2020-02-24 10:54] LABS: Activated Partial Thrombo Time 38.5 Seconds (26.0-36.0)
[2020-02-24 10:55] LABS: ABG Base Excess 0 mEq/L (-2 to 3); ABG HCO3 25 mEq/L (21-27); ABG Oxygen Saturation 98 % (95-98); ABG PCO2 40 mmHg (35-45); ABG PH 7.41 pH Units (7.32-7.45); ABG PO2 100 mmHg (85-104); ABG TCO2 26 mEq/L (20-26)
[2020-02-24 11:00] LABS: Alanine Aminotransferase 13 Units/L (7-52); Albumin 4.3 g/dL (3.5-5.7); Albumin/Globulin Ratio 1.6 (1.1-2.2); Alkaline Phosphatase 109 Units/L (34-104); Aspartate Amino Transferase 13 Units/L (13-39); BUN/Creatinine Ratio 7 (6-26); Bilirubin,Direct 0.2 mg/dL (0.0-0.2); Bilirubin,Indirect 0.3 mg/dL (0.0-1.0); Bilirubin,Total 0.5 mg/dL (0.3-1.0); Blood Urea Nitrogen 12 mg/dL (6-20); Calcium 9.6 mg/dL (8.6-10.3); Carbon Dioxide 26 mEq/L (23-29); Chloride 92 mEq/L (98-107); Ethanol < 10 mg/dL (Less than 10); Globulin 2.7 g/dL (2.4-3.5); Glucose 81 mg/dL (70-105); Osmolality,Calculated 263 (280-300); Potassium 3.1 mEq/L (3.5-5.1); Sodium 127 mEq/L (136-145); eGFR For African Americans 55 (> 60); eGFR For Non-African Americans 45 (> 60)
[2020-02-24 11:03] LABS: Troponin I < 0.03 ng/mL (< 0.04)
[2020-02-24] MEDS ORDERED: 0.9 % Sodium Chloride 1,000 ML IVC ONE (11:10)
[2020-02-24] MEDS ORDERED: Lactulose Oral Soln 20 GM/30 ML UDC PO ONE (11:15)
[2020-02-24] MEDS ORDERED: Naloxone 0.4 MG/ML INJ IVP PRN (11:51)
[2020-02-24] MEDS ORDERED: Mag Hydrox/Al Hydrox/Simeth 30 ML UDC PO PRN (11:51)
[2020-02-24] MEDS ORDERED: MOM Conc 10 ML UD.LIQ PO PRN (11:51)
[2020-02-24] MEDS ORDERED: 0.9 % Sodium Chloride 1,000 ML IVC SCH (12:00)
[2020-02-24] MEDS ORDERED: *HR* Methadone 10 MG TABLET PO PRN (14:11)
[2020-02-24] MEDS ORDERED: SUMAtriptan succinate 25 MG TABLET PO PRN (14:11)
[2020-02-24] MEDS: Albuterol 2.5 MG/3 ML NEBULIZER IH SCH ×2 (15:49→20:16)
[2020-02-24 17:08] LABS: BUN/Creatinine Ratio 9 (6-26); Blood Urea Nitrogen 12 mg/dL (6-20); Calcium 9.1 mg/dL (8.6-10.3); Carbon Dioxide 27 mEq/L (23-29); Chloride 95 mEq/L (98-107); Glucose 103 mg/dL (70-105); Osmolality,Calculated 272 (280-300); Potassium 3.4 mEq/L (3.5-5.1); Sodium 131 mEq/L (136-145); eGFR For African Americans > 60 (> 60); eGFR For Non-African Americans 56 (> 60)
[2020-02-24 17:11] LABS: Bilirubin,Urine Negative (Negative); Blood,Urine Negative (Negative); Clarity,Urine Clear (Clear); Color,Urine Yellow (Yellow); Glucose,Urine (UA) Normal (Normal); Ketones,Urine Negative (Negative); Leukocyte Esterase,Urine Negative (Negative); Nitrite,Urine Negative (Negative); Protein,Urine Negative (Neg-Trace); Specific Gravity,Urine 1.015 (1.010-1.025); Urobilinogen,Urine Normal (Normal)
[2020-02-24 17:23] LABS: Amphetamine Screen,Urine Negative ng/mL (Cutoff=1000); Barbiturate Screen,Urine Negative ng/mL (Cutoff=200); Benzodiazepines Screen,Urine Negative ng/mL (Cutoff=200); Cannabinoid Screen,Urine Negative ng/mL (Cutoff = 50); Cocaine Screen,Urine Negative ng/mL (Cutoff= 300); Opiate Screen,Urine Negative ng/mL (Cutoff=300); Phencyclidine Screen,Urine Negative ng/mL (Cutoff=25)
[2020-02-24 20:50] LABS: Sodium, Urine 36.2 mEq/L
[2020-02-24] MEDS ORDERED: Lactulose Oral Soln 20 GM/30 ML UDC PO SCH (21:00)
[2020-02-24] MEDS: risperiDONE 1 MG TABLET PO SCH (21:27)
[2020-02-24] MEDS: Divalproex (12 HR) 250 MG TABLET PO SCH (21:27)
[2020-02-24] MEDS: Loratadine 10 MG TABLET PO SCH (21:37)
[2020-02-24] MEDS ORDERED: Budesonide/Formoterol 80/4.5 1 PUFF INH IH SCH (22:00)
[2020-02-24 23:04] LABS: BUN/Creatinine Ratio 9 (6-26); Blood Urea Nitrogen 11 mg/dL (6-20); Carbon Dioxide 26 mEq/L (23-29); Chloride 96 mEq/L (98-107); Glucose 110 mg/dL (70-105); Osmolality,Calculated 268 (280-300); Potassium 3.3 mEq/L (3.5-5.1); Sodium 129 mEq/L (136-145); eGFR For African Americans > 60 (> 60); eGFR For Non-African Americans > 60 (> 60)
[2020-02-25] MEDS: Albuterol 2.5 MG/3 ML NEBULIZER IH SCH (00:21)
[2020-02-25] MEDS: 0.9 % Sodium Chloride 1,000 ML IVC SCH ×2 (04:14→20:20)
[2020-02-25 04:56] LABS: Hematocrit 30.7 % (37.5-50.1); Hemoglobin 11.4 g/dL (12.9-16.9); Mean Corpuscular Hemoglobin 31.8 pg (28.0-33.3); Mean Corpuscular Volume 85.8 fL (83.0-100.0); Mean Platelet Volume 8.6 fL (9.4-12.4); Platelet Count 176 K/mcL (140-400); Red Blood Count 3.58 M/mcL (4.19-5.50); Red Cell Distribution Width 11.5 % (11.5-14.5)
[2020-02-25 05:20] LABS: BUN/Creatinine Ratio 8 (6-26); Blood Urea Nitrogen 9 mg/dL (6-20); Calcium 8.7 mg/dL (8.6-10.3); Carbon Dioxide 26 mEq/L (23-29); Chloride 98 mEq/L (98-107); Glucose 79 mg/dL (70-105); Magnesium 1.7 mg/dL (1.6-2.6); Osmolality,Calculated 272 (280-300); Potassium 3.6 mEq/L (3.5-5.1); Sodium 132 mEq/L (136-145); eGFR For African Americans > 60 (> 60); eGFR For Non-African Americans > 60 (> 60)
[2020-02-25] MEDS: *HR* Enoxaparin 40 MG/0.4 ML SYRINGE SQ SCH (06:09)
[2020-02-25 06:53] LABS: Mean Corpuscular HGB Conc 37.1 g/dL (31.6-35.5); White Blood Count 8.4 K/mcL (4.3-11.1)
[2020-02-25] MEDS: risperiDONE 1 MG TABLET PO SCH ×2 (08:03→20:23)
[2020-02-25] MEDS: BuPROPion XL (24 HR) 150 MG TABLET PO SCH (08:04)
[2020-02-25] MEDS: Lactulose Oral Soln 20 GM/30 ML UDC PO SCH ×3 (08:04→20:24)
[2020-02-25] MEDS: Loratadine 10 MG TABLET PO SCH (08:04)
[2020-02-25] MEDS: FluocinoLONE Acet 0.025% CRM 15 GM TUBE TP SCH (08:05)
[2020-02-25] MEDS: Budesonide/Formoterol 80/4.5 1 PUFF INH IH SCH ×2 (10:08→21:42)
[2020-02-25] MEDS: Divalproex (12 HR) 250 MG TABLET PO SCH (20:24)
[2020-02-26] MEDS: 0.9 % Sodium Chloride 1,000 ML IVC SCH ×4 (04:32→18:34)
[2020-02-26] MEDS: *HR* Enoxaparin 40 MG/0.4 ML SYRINGE SQ SCH (06:23)
[2020-02-26] MEDS: Loratadine 10 MG TABLET PO SCH (08:12)
[2020-02-26] MEDS: BuPROPion XL (24 HR) 150 MG TABLET PO SCH (08:12)
[2020-02-26] MEDS: risperiDONE 1 MG TABLET PO SCH (08:12)
[2020-02-26] MEDS: Lactulose Oral Soln 20 GM/30 ML UDC PO SCH ×5 (08:12→18:36)
[2020-02-26 09:11] LABS: Hemoglobin 11.6 g/dL (12.9-16.9); Mean Corpuscular HGB Conc 36.3 g/dL (31.6-35.5); Mean Corpuscular Hemoglobin 31.6 pg (28.0-33.3); Mean Corpuscular Volume 87.2 fL (83.0-100.0); Mean Platelet Volume 8.4 fL (9.4-12.4); Platelet Count 153 K/mcL (140-400); Red Blood Count 3.67 M/mcL (4.19-5.50); Red Cell Distribution Width 11.4 % (11.5-14.5); White Blood Count 8.1 K/mcL (4.3-11.1)
[2020-02-26 09:30] LABS: BUN/Creatinine Ratio 9 (6-26); Blood Urea Nitrogen 9 mg/dL (6-20); Calcium 9.2 mg/dL (8.6-10.3); Carbon Dioxide 24 mEq/L (23-29); Chloride 103 mEq/L (98-107); Glucose 97 mg/dL (70-105); Osmolality,Calculated 281 (280-300); Potassium 3.8 mEq/L (3.5-5.1); Sodium 136 mEq/L (136-145); eGFR For African Americans > 60 (> 60); eGFR For Non-African Americans > 60 (> 60)
[2020-02-26] MEDS: Budesonide/Formoterol 80/4.5 1 PUFF INH IH SCH (10:09)
[2020-02-26] MEDS: FluocinoLONE Acet 0.025% CRM 15 GM TUBE TP SCH (11:42)
[2020-02-26] MEDS ORDERED: *HR* LORazepam 2 MG/ML VIAL ONE (17:15)
[2020-02-26] MEDS ORDERED: *HR* LORazepam 2 MG/ML VIAL IVP ONE ×2 (17:18→17:28)
[2020-02-26 17:22] LABS: Basophils # 0.1 K/mcL (0.0-0.2); Basophils % 0.6 %; Eosinophils # 0.4 K/mcL (0.0-0.6); Eosinophils % 4.2 %; Hematocrit 31.2 % (37.5-50.1); Hemoglobin 11.3 g/dL (12.9-16.9); Lymphocytes % 11.4 %; Mean Corpuscular HGB Conc 36.2 g/dL (31.6-35.5); Mean Corpuscular Hemoglobin 31.6 pg (28.0-33.3); Mean Corpuscular Volume 87.2 fL (83.0-100.0); Mean Platelet Volume 8.2 fL (9.4-12.4); Monocytes # 0.8 K/mcL (0.0-1.3); Neutrophils # 6.1 K/mcL (1.6-8.9); Platelet Count 149 K/mcL (140-400); Red Blood Count 3.58 M/mcL (4.19-5.50); Red Cell Distribution Width 11.6 % (11.5-14.5); Segmented Neutrophils % 73.8 %; White Blood Count 8.3 K/mcL (4.3-11.1)
[2020-02-26 17:42] LABS: BUN/Creatinine Ratio 11 (6-26); Blood Urea Nitrogen 10 mg/dL (6-20); Calcium 8.8 mg/dL (8.6-10.3); Carbon Dioxide 23 mEq/L (23-29); Chloride 106 mEq/L (98-107); Glucose 90 mg/dL (70-105); Osmolality,Calculated 283 (280-300); Potassium 3.9 mEq/L (3.5-5.1); Sodium 137 mEq/L (136-145); eGFR For African Americans > 60 (> 60); eGFR For Non-African Americans > 60 (> 60)
[2020-02-26 18:31] VITALS: BP 152/90
[2020-02-26 19:23] LABS: Prolactin 14.14 ng/mL (3.00-14.70)
== END 2020-02-26 20:42 | disposition short-term general hospital (02) | DRG 71 ==
LOC: INPPIK 10:13 → EMEROOPIK 10:13 → INPPIK 12:35
PROVIDERS: ADMIT Family Medicine; ATTEND Family Medicine

== ENCOUNTER 2020-04-17 22:17 | Inpatient (IN) ==
[2020-04-17] MEDS ORDERED: *HR* Dextrose 50 % in Water (Syg) 50 ML SYRINGE ONE (22:53)
[2020-04-17] MEDS: *HR* Dextrose 50 % in Water (Syg) 50 ML SYRINGE IVP ONE ×2 (22:56→22:59)
[2020-04-17 23:04] LABS: Basophils # 0.1 K/mcL (0.0-0.2); Basophils % 0.6 %; Eosinophils # 0.1 K/mcL (0.0-0.6); Eosinophils % 1.5 %; Hematocrit 35.9 % (37.5-50.1); Hemoglobin 12.3 g/dL (12.9-16.9); Immature Granulocytes % 1.4 % (0-4); Lymphocytes # 0.8 K/mcL (0.6-4.6); Mean Corpuscular HGB Conc 34.3 g/dL (31.6-35.5); Mean Corpuscular Volume 93.5 fL (83.0-100.0); Monocytes # 1.4 K/mcL (0.0-1.3); Monocytes % 16.9 %; Neutrophils # 5.6 K/mcL (1.6-8.9); Platelet Count 125 K/mcL (140-400); Red Blood Count 3.84 M/mcL (4.19-5.50); Red Cell Distribution Width 13.7 % (11.5-14.5); Segmented Neutrophils % 69.6 %
[2020-04-17 23:12] LABS: INR 1.1; Prothrombin Time 12.7 Seconds (9.4-12.1)
[2020-04-17 23:20] LABS: Albumin 4.4 g/dL (3.5-5.7); Albumin/Globulin Ratio 1.6 (1.1-2.2); Bilirubin,Total 0.9 mg/dL (0.3-1.0); Calcium 9.6 mg/dL (8.6-10.3); Globulin 2.8 g/dL (2.4-3.5); Potassium 4.6 mEq/L (3.5-5.1); Total Protein 7.2 g/dL (6.4-8.9)
[2020-04-17 23:43] LABS: Bilirubin,Urine Moderate (Negative); Blood,Urine Negative (Negative); Clarity,Urine Clear (Clear); Color,Urine Dark Yellow (Yellow); Glucose,Urine (UA) Normal (Normal); Ketones,Urine 40 mg/dL (Negative); Leukocyte Esterase,Urine Negative (Negative); Nitrite,Urine Negative (Negative); PH,Urine 5.5 pH Units (5.0-8.0); Protein,Urine Trace mg/dL (Neg-Trace); Specific Gravity,Urine >= 1.030 (1.010-1.025); Urobilinogen,Urine Normal (Normal)
[2020-04-17] MEDS ORDERED: D10% in Water 500 ML IVC SCH (23:45)
[2020-04-17] MEDS ORDERED: *HR* Dextrose 50 % in Water (Syg) 50 ML SYRINGE IVP ONE (23:56)
[2020-04-18] MEDS ORDERED: Naloxone 0.4 MG/ML INJ IVP PRN (00:10)
[2020-04-18] MEDS ORDERED: *HR* Enoxaparin 40 MG/0.4 ML SYRINGE SQ SCH (00:15)
[2020-04-18] MEDS ORDERED: Dextrose 50 % in Water (Vial) 50 ML in D5% in 0.2% NACL 500 ML IVC SCH (00:15)
[2020-04-18] MEDS: *HR* Enoxaparin 40 MG/0.4 ML SYRINGE SQ SCH ×2 (00:30→10:19)
[2020-04-18] MEDS: D10% in Water 500 ML IVC SCH ×2 (00:31→06:29)
[2020-04-18] MEDS ORDERED: *HR* Methadone 10 MG TABLET PO PRN (02:49)
[2020-04-18] MEDS ORDERED: SUMAtriptan succinate 50 MG TABLET PO PRN (02:49)
[2020-04-18 07:06] LABS: Albumin 4.1 g/dL (3.5-5.7); Albumin/Globulin Ratio 1.8 (1.1-2.2); Bilirubin,Total 0.8 mg/dL (0.3-1.0); Calcium 9.2 mg/dL (8.6-10.3); Globulin 2.3 g/dL (2.4-3.5); Potassium 3.9 mEq/L (3.5-5.1); Total Protein 6.4 g/dL (6.4-8.9)
[2020-04-18] MEDS ORDERED: Acetaminophen 325 MG TABLET PO PRN (10:04)
[2020-04-18] MEDS ORDERED: 0.9 % Sodium Chloride 1,000 ML IV ONE (10:05)
[2020-04-18] MEDS: Mirtazapine 15 MG TABLET PO SCH (10:18)
[2020-04-18] MEDS: modafiniL 100 MG TABLET PO SCH (10:18)
[2020-04-18] MEDS: Aspirin Enteric Coated 81 MG Tablet PO SCH (10:18)
[2020-04-18] MEDS: BuPROPion XL (24 HR) 150 MG TABLET PO SCH (10:18)
[2020-04-18] MEDS: risperiDONE 1 MG TABLET PO SCH (10:19)
[2020-04-18] MEDS: Lactulose Oral Soln 20 GM/30 ML UDC PO SCH (10:19)
[2020-04-18] MEDS: Budesonide/Formoterol 80/4.5 1 PUFF INH IH SCH ×2 (10:54→21:25)
[2020-04-18] MEDS ORDERED: Haloperidol Lactate 5 MG/ML VIAL IM ONE (11:45)
[2020-04-18 11:50] LABS: Hematocrit 34.5 % (37.5-50.1); Hemoglobin 12.3 g/dL (12.9-16.9); Mean Corpuscular HGB Conc 35.7 g/dL (31.6-35.5); Mean Corpuscular Hemoglobin 32.8 pg (28.0-33.3); Mean Platelet Volume 8.7 fL (9.4-12.4); Platelet Count 110 K/mcL (140-400); Red Blood Count 3.75 M/mcL (4.19-5.50); Red Cell Distribution Width 13.4 % (11.5-14.5); White Blood Count 6.2 K/mcL (4.3-11.1)
[2020-04-18] MEDS ORDERED: Haloperidol Lactate 5 MG/ML VIAL IVP PRN (13:50)
[2020-04-18 14:42] LABS: Amphetamine Screen,Urine Positive ng/mL (Cutoff=1000); Barbiturate Screen,Urine Negative ng/mL (Cutoff=200); Benzodiazepines Screen,Urine Negative ng/mL (Cutoff=200); Cannabinoid Screen,Urine Negative ng/mL (Cutoff = 50); Cocaine Screen,Urine Negative ng/mL (Cutoff= 300); Opiate Screen,Urine Negative ng/mL (Cutoff=300); Phencyclidine Screen,Urine Negative ng/mL (Cutoff=25)
[2020-04-18] MEDS: Haloperidol Lactate 5 MG/ML VIAL IM PRN (20:36)
[2020-04-18] MEDS ORDERED: Divalproex (12 HR) 250 MG TABLET PO SCH (21:00)
[2020-04-18] MEDS ORDERED: risperiDONE 1 MG TABLET PO SCH (21:00)
[2020-04-19] MEDS: Haloperidol Lactate 5 MG/ML VIAL IM PRN ×4 (04:15→18:33)
[2020-04-19] MEDS: Mirtazapine 15 MG TABLET PO SCH (08:40)
[2020-04-19] MEDS: risperiDONE 1 MG TABLET PO SCH (08:40)
[2020-04-19] MEDS: Aspirin Enteric Coated 81 MG Tablet PO SCH (08:40)
[2020-04-19] MEDS: BuPROPion XL (24 HR) 150 MG TABLET PO SCH (08:40)
[2020-04-19] MEDS: Lactulose Oral Soln 20 GM/30 ML UDC PO SCH (08:44)
[2020-04-19] MEDS: modafiniL 100 MG TABLET PO SCH (08:44)
[2020-04-19] MEDS ORDERED: *HR* Enoxaparin 40 MG/0.4 ML SYRINGE SQ SCH (09:00)
[2020-04-19] MEDS: Budesonide/Formoterol 80/4.5 1 PUFF INH IH SCH (09:57)
[2020-04-19] MEDS: D10% in Water 500 ML IVC SCH (10:18)
[2020-04-19 11:27] LABS: Hematocrit 33.5 % (37.5-50.1); Hemoglobin 11.8 g/dL (12.9-16.9); Mean Corpuscular HGB Conc 35.2 g/dL (31.6-35.5); Mean Corpuscular Hemoglobin 32.2 pg (28.0-33.3); Mean Corpuscular Volume 91.5 fL (83.0-100.0); Mean Platelet Volume 8.9 fL (9.4-12.4); Red Blood Count 3.66 M/mcL (4.19-5.50); Red Cell Distribution Width 13.2 % (11.5-14.5); White Blood Count 4.8 K/mcL (4.3-11.1)
[2020-04-19 11:33] LABS: Platelet Count 95 K/mcL (140-400)
[2020-04-19 11:52] LABS: BUN/Creatinine Ratio 14 (6-26); Blood Urea Nitrogen 16 mg/dL (6-20); Calcium 9.2 mg/dL (8.6-10.3); Carbon Dioxide 28 mEq/L (23-29); Chloride 102 mEq/L (98-107); Glucose 98 mg/dL (70-105); Osmolality,Calculated 289 (280-300); Potassium 3.8 mEq/L (3.5-5.1); Sodium 139 mEq/L (136-145); eGFR For African Americans > 60 (> 60); eGFR For Non-African Americans > 60 (> 60)
[2020-04-19 18:36] VITALS: BP 138/83
== END 2020-04-19 19:11 | disposition short-term general hospital (02) | DRG 71 ==
LOC: EMEROOPIK 22:17 → INPPIK 04-18 00:17
PROVIDERS: ADMIT Family Medicine; ATTEND Family Medicine